=== PATIENT | male | born 1975 | race Caucasian/White ===

== ENCOUNTER → 2020-12-10 09:57 | Outpatient (BNVA) | payer OTHER, SELFPAY | PROVIDERS: PCP Internal Medicine; Visit Provider Surgery | DX: K64.2 Third degree hemorrhoids (principal) | CPT/HCPCS: 46600; 99212 ==

== ENCOUNTER 2020-12-28 06:37 | Day surgery (SDC) | payer OTHER, SELFPAY ==
[2020-12-24 11:23] VITALS: BMI 29.0
--- NOTE | 2020-12-26 13:01 | HO.ANESPROP2 ---
Documented by User: Nathalia Lundy 12/26/20 13:02 HPI - Anesthesia Eval Consult details Narrative: 45yo M for Hemorrhoidectomy, [facility] Active Problems Active Problems: All Active Problems (Updated 12/24/20 @ 11:19 by Elaine Dumont) Hemorrhoids that prolapse with straining and require manual replacement back inside anal canal (Acute) Anxiety and depression (Acute) Past Medical History Medical History Anxiety and depression Hemorrhoids that prolapse with straining and require manual replacement back inside anal canal Low back pain Surgical History Surgical History History of hemorrhoidectomy (~2007) History of laminectomy (~2013) History of removal of retained hardware History of right elbow replacement Hx of colonoscopy Social History Social History Alcohol intake: never Smoking Status: Never smoker Use of substances other than those prescribed or required for medical reasons: No Advance Directives: No Advance Directives Information Provided: No Advance Directives on File: No Meds Allergies Allergy/AdvReac Type Severity Reaction Status Date / Time No Known Allergies Allergy Verified 12/24/20 11:20 Home Medications Medication Instructions Recorded Confirmed Last Taken Type quetiapine 1 tab PO BEDTIME 12/24/20 12/24/20 Unknown History sulindac 200 mg PO BID PRN 12/24/20 12/24/20 Unknown History Exam Exam Date and Time: December 26, 2020 1301 Height,Weight and Vital Signs: Height 5 ft 11 in Weight 94.347 kg Assessment and Plan Assessment Anesthesia Assessment: Chart Reviewed Documented by User: Sylvia Carlin 12/28/20 08:50 [facility] Past Medical History Medical History Anxiety and depression Hemorrhoids that prolapse with straining and require manual replacement back inside anal canal Low back pain Surgical History Surgical History History of hemorrhoidectomy (~2007) History of laminectomy (~2013) History of removal of retained hardware History of right elbow replacement Hx of colonoscopy Social History Social History Alcohol intake: never Smoking Status: Never smoker Use of substances other than those prescribed or required for medical reasons: No Advance Directives: No Advance Directives Information Provided: No Advance Directives on File: No Meds Allergies Allergy/AdvReac Type Severity Reaction Status Date / Time No Known Allergies Allergy Verified 12/24/20 11:20 Home Medications Medication Instructions Recorded Confirmed Last Taken Type quetiapine 1 tab PO BEDTIME 12/24/20 12/24/20 Unknown History sulindac 200 mg PO BID PRN 12/24/20 12/24/20 Unknown History Exam Airway Mallampati Class: II TM Dist: >3cm Neck ROM: Full Heart: RRR Lungs: CTA
[2020-12-28 06:55] VITALS: BP 119/86; PULSE 70; RESP 18; TEMP 36.6; O2SAT 98
[2020-12-28] MEDS: Lactated Ringers 1,000 ML 100 ML IVCONT (07:11)
--- NOTE | 2020-12-28 09:09 | MHC.SHP ---
Pre-Procedural Eval Section B Chief Complaint: Third degree hemorrhoids Allergies: Allergies Allergy/AdvReac Type Severity Reaction Status Date / Time No Known Allergies Allergy Verified 12/24/20 11:20 Plan I have reviewed the history and physical and performed a pertinent physical examination on my patient. No changes have occurred unless specified.
--- NOTE | 2020-12-28 10:09 | P.OP_ITS ---
Operative Note Operative Note Date of Service: 12/28/20 Narrative: 45-year-old male was initially seen in the office because pain, and prolapse with hemorrhoids. He wanted to proceed with hemorrhoidectomy. He understood technique of the procedure. He was aware of the risks, benefits, and alternatives. He was brought to the operating room and placed in prone harlan-knife position under general anesthesia via endotracheal tube. The buttocks were retracted with wide tape laterally. The perianal was prepped and draped in the usual sterile fashion. A surgical time-out was done. The patient received Cefotan 2 g IV preoperatively. Examination of the anal orifice revealed an external hemorrhoid column on the left as well as on the right. I inserted the Codie Méndez retractor and examined the anal canal circumferentially. There was note of this mixed external and and internal hemorrhoid column on the left as well as the right side which appeared to be moderate-sized. There were no other lesions. There was no fissure or any induration. I applied a Arias grasper at the hemorrhoidal column on the left. I made a mghvmq-nz-rejak stitch at the pedicle using chromic 3-0 proximal to the dentate line. I made I incision around this hemorrhoid column to the perianal skin u sing blade 15. I excised the hemorrhoid column along this incision above the plane of the sphincters all the way to the pedicle. I closed this incision with a running chromic 3-0 stitch. Additional pobbuy-di-ayomx hemostatic chromic 3-0 sutures were placed We then proceeded to excise the hemorrhoidal column on the right side. Again a Arias grasper was used to retract this. I have made a izvafo-qf-dkrwc stitch on the pedicle using a chronic 3-0 and made I am incision around the hemorrhoidal column to the perianal skin. I excised this hemorrhoidal column above the plane of sphincters using scissors. I closed this incision with a running chromic 3-0 stitch with additional eyxzvw-dz-djzhn hemostatic sutures being placed as well. Once hemostasis was ensured, I proceeded to then infiltrate the perianal area with Marcaine 0.5% for postop analgesia. The procedure was then completed. The patient tolerated well. No immediate complication noted. Initial and final counts of sponges and instruments were correct. Estimated blood loss about 5 cc The patient was extubated without difficulty and transferred to recovery room with stable vital signs.
--- NOTE | 2020-12-28 10:14 | PM.OP ---
Brief Operative Note Date of Service: 12/28/20 Pre-op diagnosis: Internal and external hemorrhoids Post-op diagnosis: same Procedure: Exam under anesthesia, hemorrhoidectomy Surgeon: Ronnie Nixon MD Anesthesia: GETA Estimated blood loss (mL): 5 Pathology: other (Hemorrhoids) Condition: stable Disposition: PACU
[2020-12-28 10:20] VITALS: BP 126/84; PULSE 84; RESP 20; TEMP 36.3; O2SAT 98
[2020-12-28 10:25] VITALS: BP 114/81; PULSE 73; RESP 20; O2SAT 98
[2020-12-28 10:30] VITALS: BP 120/87; PULSE 85; RESP 20; O2SAT 97
[2020-12-28 10:35] VITALS: BP 114/79; PULSE 87; RESP 20; O2SAT 96
[2020-12-28 10:50] VITALS: BP 119/76; PULSE 85; RESP 20; O2SAT 95
== END 2020-12-28 11:58 ==
LOC: HO.SSS 06:38
PROVIDERS: PCP Internal Medicine; Visit Provider Surgery
PROC: (CPT 46260; principal; 2020-12-28 09:20)
DX: K64.2 Third degree hemorrhoids (principal); M96.1 Postlaminectomy syndrome, not elsewhere classified; F41.8 Other specified anxiety disorders; Z79.899 Other long term (current) drug therapy; Z79.1 Long term (current) use of non-steroidal anti-inflammatories (NSAID)
CPT/HCPCS: 46260; 88304; J0330; J1100; J1885; J2250; J2405; J3010

== ENCOUNTER → 2021-01-10 09:45 | Outpatient (BNVA) | payer OTHER, SELFPAY | PROVIDERS: PCP Internal Medicine; Visit Provider Surgery | DX: Z48.815 Encounter for surgical aftercare following surgery on the digestive system (principal); Z87.19 Personal history of other diseases of the digestive system | CPT/HCPCS: 99212 ==

== ENCOUNTER 2021-07-24 17:43 | Outpatient (REF) | payer OTHER, SELFPAY | END 2021-07-24 17:44 | disposition home or self-care (01) | LOC: HO.LNP 17:43 | PROVIDERS: Visit Provider Internal Medicine | DX: N30.01 Acute cystitis with hematuria (principal) | CPT/HCPCS: 87086 ==

== ENCOUNTER 2022-12-11 10:27 | Outpatient (REF) | payer OTHER, SELFPAY ==
--- NOTE | ~2022-12-11 | XR_ITS ---
EXAMINATION: XR SHOULDER, LEFT CLINICAL INFORMATION: Pain COMPARISON: None TECHNIQUE: Three views of the left shoulder. FINDINGS: Bone alignment is normal. No acute fracture or dislocation. Question old Hill-Sachs deformity. Joint spaces are normal. Soft tissues are otherwise normal. XR/XR shoulder LT min 2V IMPRESSION: Question old Hill-Sachs deformity.
== END 2022-12-11 10:28 | disposition home or self-care (01) ==
LOC: HO.HOSX 10:27
PROVIDERS: PCP Internal Medicine; Visit Provider Physician Assistant
DX: M75.82 Other shoulder lesions, left shoulder (principal)
CPT/HCPCS: 20610; 73030; 99202; J1040

== ENCOUNTER 2023-07-03 09:59 | Outpatient (AMB) | payer OTHER, SELFPAY ==
--- NOTE | 2023-07-03 10:02 | A.OFFVIS_ITS ---
Intake Vital Signs 07/03/23 10:10 Height 5 ft 11 in Weight 213 lb BMI 29.7 Intake Visit Reasons: ov- Left shoulder pain Intake Note: Sofiya 47 year old male who presents today for a follow up of left shoulder, last injection 12/11/22. Patient reports last injection provided no relief. He states while he was in [place] no pain but once he returned his pain returned. He was seen at [facility] ED who suggested he see an orthopedic. Currently he has constant pain and with certain movements. No relief with Tylenol, Motrin or Naproxen 500 mg. No other tx. Denies numbness or tingling. Allergies No Known Allergies Allergy (Verified 07/03/23 10:07) HPI ov- Left shoulder pain HPI Details 47-year-old male who returns to the office today for a follow-up of left shoulder pain. He states he had no pain when he was in [place] but the pain came back as he returned home. He currently reports he has constant pain in his shoulder which is aggravated with sleeping and certain movements. He denies any numbness or tingling and has not had any treatment in the past. He had his last injection on 12/11/22 which provided him no relief. He was also seen at [facility] ED where he was referred to our office. He finds no relief with Tylenol, Motrin or naproxen 500 mg. [facility] Medical History Anxiety and depression Hemorrhoids that prolapse with straining and require manual replacement back inside anal canal Low back pain Surgical History History of hemorrhoidectomy (~2007) History of laminectomy (~2013) History of removal of retained hardware History of right elbow replacement Hx of colonoscopy Social History Alcohol intake: never Patient Tobacco Use Status: Former Tobacco user Current occupational status: disabled Current occupation: right handed Review of Systems Const All systems reviewed & are unremarkable except as noted in HPI and below Physical Exam Vital Signs: BMI result Body Mass Index 29.7 Const General: cooperative, healthy appearing, comfortable, no acute distress, well developed and alert Orientation/consciousness: patient oriented x3 HEENT Head: Yes normal to inspection, Yes normocephalic and Yes atraumatic Eyes General: appearance normal, both eyes and all related structures Neck Neck: Yes normal visual inspection and Yes no lymphadenopathy Resp Effort & Inspection: normal respiratory effort and able to speak in complete sentences Cardio Rate: regular rate Peripheral pulses: Peripheral pulses 2+ throughout GI Inspection: Yes normal to inspection Palpation (GI): Soft to palpation Skin General skin exam: no rashes or lesions noted Neuro General: patient oriented x3 Extrem Other: Left shoulder normal to inspection. Tenderness over the bicipital groove and along the deltoid region of the shoulder. Forward flexion to 175, external rotation to 90, internal rotation to S1. 5/5 RTC strength. Positive [place] and O?Kwame?s. NVI. Psych Appearance: grossly normal Mental Status: mental status grossly normal Assessment & Plan Assessment & Plan (1) Tendonitis of left rotator cuff: Code(s): M75.82 - Other shoulder lesions, left shoulder Plan We discussed options which include repeat injection and an MRI. He is going to hold off on the injection today and an MRI of the left shoulder was ordered to further evaluate the integrity of RTC and surrounding structures. I encouraged him to work on his home exercises program and he will see me back once the scan is complete. Orders: Orders MR shoulder RT wo con Today M75.82 - Other shoulder lesions, left shoulder Patient Instructions: Scribed for Kentrell Rodriguez PA-C, by Edwin Owen medical records specialist, on 07/03/2023 at 9:45 AM SIN. Kentrell Mcdonald PA-C, have personally reviewed and agree with the information entered by the scribe. Coding Level of Care Code Est Pt Level 3 (42858) Diagnoses Tendonitis of left rotator cuff M75.82
[2023-07-03 10:10] VITALS: BMI 29.7
== END 2023-07-03 10:19 | disposition home or self-care (01) ==
PROVIDERS: PCP Internal Medicine; Visit Provider Physician Assistant
DX: M75.82 Other shoulder lesions, left shoulder (principal)
CPT/HCPCS: 99214

== ENCOUNTER → 2023-07-03 09:59 | Outpatient (BNVA) | payer OTHER, SELFPAY | PROVIDERS: PCP Internal Medicine; Visit Provider Physician Assistant ==

== ENCOUNTER 2023-08-05 18:04 | Outpatient (REF) | payer OTHER, SELFPAY ==
--- NOTE | ~2023-08-05 | MR_ITS ---
EXAMINATION: MR SHOULDER WITHOUT CONTRAST, LEFT CLINICAL INFORMATION: Left shoulder pain and limited range of motion. COMPARISON: Left shoulder radiographs dated 12/11/2022. TECHNIQUE: Multisequence MR imaging of the left shoulder was obtained without contrast on a high-field strength scanner. FINDINGS: ROTATOR CUFF: Mild supraspinatus tendinosis with insertional intrasubstance partial tearing measuring approximately 1.4 x 0.5 cm (AP x ML). No extension to the articular or bursal surfaces. Mild subscapularis tendinosis with distal articular surface fraying/partial tearing. No full-thickness rotator cuff tendon tear. No significant rotator cuff muscle atrophy. BICEPS: Absence of the proximal long head biceps tendon, consistent with a complete tear and tendon retraction. Small amount of the proximal biceps tissue remains attached to the anterosuperior labrum measuring up to 1.0 cm. CORACOACROMIAL ARCH: The undersurface of the acromion is minimally curved with lateral downsloping and small subacromial spurs. Mild acromioclavicular osteoarthritis. Trace edema within the subacromial subdeltoid bursa, consistent with minimal bursitis. LABRUM/CAPSULE: Irregularity/fraying through the periphery of the superior labrum adjacent to the biceps tendon attachment. No displaced undersurface tear. Intact joint capsule. GLENOHUMERAL JOINT/MARROW: Intact articular cartilage. No acute osseous injury. Small glenohumeral joint effusion. MR/MR shoulder LT wo con IMPRESSION: Mild supraspinatus tendinosis with insertional intrasubstance partial tearing measuring 1.4 x 0.5 cm (AP x ML). Mild subscapularis tendinosis with distal articular surface fraying/partial tearing. No full-thickness rotator cuff tendon tear. Complete tear and retraction of the proximal long head biceps tendon with a small amount of biceps tendon tissue remaining attached to the anterosuperior labrum. Mild acromioclavicular osteoarthritis with lateral downsloping and small subacromial spurs. Minimal subacromial subdeltoid bursitis. Irregularity/fraying through the periphery of the superior labrum adjacent to the biceps tendon attachment. No displaced undersurface labral tear. Small glenohumeral joint effusion.
== END 2023-08-05 18:05 | disposition home or self-care (01) ==
LOC: HO.MRI 18:04
PROVIDERS: PCP Internal Medicine; Visit Provider Physician Assistant
DX: S46.002D Unspecified injury of muscle(s) and tendon(s) of the rotator cuff of left shoulder, subsequent encounter (principal); M75.82 Other shoulder lesions, left shoulder
CPT/HCPCS: 73221

== ENCOUNTER 2023-08-14 10:16 | Outpatient (AMB) | payer OTHER, SELFPAY ==
[2023-08-14 10:17] VITALS: BMI 29.7
--- NOTE | 2023-08-14 10:17 | A.OFFVIS_ITS ---
Intake Vital Signs 08/14/23 10:17 Height 5 ft 11 in Weight 213 lb BMI 29.7 Intake Visit Reasons: OV, MRI Review Intake Note: Sofiya 47 year old male who presents today for a MRI review of left shoulder. Patient reports sharp pain with certain arm movements. Allergies No Known Allergies Allergy (Verified 08/14/23 10:18) HPI OV, MRI Review HPI Details 47-year-old male who returns to the [facility] today for an MRI review of left shoulder. he continues to have sharp pain in his shoulder with certain arm movements. [facility] Medical History Anxiety and depression Hemorrhoids that prolapse with straining and require manual replacement back inside anal canal Low back pain Surgical History Hx of colonoscopy History of removal of retained hardware History of right elbow replacement History of hemorrhoidectomy (~2007) History of laminectomy (~2013) Social History Alcohol intake: never Patient Tobacco Use Status: Former Tobacco user Current occupational status: disabled Current occupation: right handed Review of Systems Const All systems reviewed & are unremarkable except as noted in HPI and below Physical Exam Vital Signs: BMI result Body Mass Index 29.7 Const General: cooperative, healthy appearing, comfortable, no acute distress, well developed and alert Orientation/consciousness: patient oriented x3 HEENT Head: Yes normal to inspection, Yes normocephalic and Yes atraumatic Eyes General: appearance normal, both eyes and all related structures Neck Neck: Yes normal visual inspection and Yes no lymphadenopathy Resp Effort & Inspection: normal respiratory effort and able to speak in complete sentences Cardio Rate: regular rate Peripheral pulses: Peripheral pulses 2+ throughout GI Inspection: Yes normal to inspection Palpation (GI): Soft to palpation Skin General skin exam: no rashes or lesions noted Neuro General: patient oriented x3 Extrem Other: Left shoulder normal to inspection. Tenderness over the bicipital groove and along the deltoid region of the shoulder. Forward flexion to 175, external rotation to 90, internal rotation to S1. 5/5 RTC strength. Positive Gil[place] and O?Kwame?s. NVI. Psych Appearance: grossly normal Mental Status: mental status grossly normal Results Reviewed Results Reviewed: MR shoulder LT wo con IMPRESSION: Mild supraspinatus tendinosis with insertional intrasubstance partial tearing measuring 1.4 x 0.5 cm (AP x ML). Mild subscapularis tendinosis with distal articular surface fraying/partial tearing. No full-thickness rotator cuff tendon tear. Complete tear and retraction of the proximal long head biceps tendon with a small amount of biceps tendon tissue remaining attached to the anterosuperior labrum. Mild acromioclavicular osteoarthritis with lateral downsloping and small subacromial spurs. Minimal subacromial subdeltoid bursitis. Irregularity/fraying through the periphery of the superior labrum adjacent to the biceps tendon attachment. No displaced undersurface labral tear. Small glenohumeral joint effusion. Assessment & Plan Assessment & Plan (1) Tendonitis of left rotator cuff: Code(s): M75.82 - Other shoulder lesions, left shoulder Plan He is going to continue activity as tolerated maintaining his ROM and strength. He will contact the office if he develops any type symptoms or limitations in activities, otherwise follow-up as needed. Patient Instructions: Scribed for Kentrell Rodriguez PA-C, by Edwin Owen medical chief technician, on 08/14/2023 at 10:45 AM SIN. Kentrell Mcdonald PA-C, have personally reviewed and agree with the information entered by the scribe. Coding Level of Care Code Est Pt Level 3 (24984) Diagnoses Tendonitis of left rotator cuff M75.82
== END 2023-08-14 12:45 | disposition home or self-care (01) ==
PROVIDERS: PCP Internal Medicine; Visit Provider Physician Assistant
DX: M75.82 Other shoulder lesions, left shoulder (principal); S46.111A Strain of muscle, fascia and tendon of long head of biceps, right arm, initial encounter
CPT/HCPCS: 99213

== ENCOUNTER → 2023-08-14 10:16 | Outpatient (BNVA) | payer OTHER, SELFPAY | PROVIDERS: PCP Internal Medicine; Visit Provider Physician Assistant | DX: M75.82 Other shoulder lesions, left shoulder (principal) | CPT/HCPCS: 99212 ==

== ENCOUNTER 2025-04-17 07:49 | Day surgery (SDC) | payer OTHER, SELFPAY ==
--- OUTSIDE RECORDS SUMMARY | 2025-03-21 10:41 | XMS_ITS | Clinical Summary ---
Author Organization [facility] Address [address] [place] [address] Care Team Providers Care General Warehouse Worker Name Role Phone Unavailable Primary Care Provider Unavailabl e Source Comments PLEASE NOTE, if this patient is a minor, it may be UNLAWFUL to discuss sensitive information that is contained in these records (such as FAMILY PLANNING, MENTAL HEALTH or SUBSTANCE ABUSE) with the minor patient's parent or other person without the patient's specific authorization.[facility] Medications No known medications Active Problems No known active problems Social History Tobacco Use Types Packs/Day Years Used Date Smoking Tobacco: Former Cigarettes Smokeless Tobacco: Never Tobacco Cessation:Counseling Given: Not Answered Social Connections Answer Date Recorded Connectedness 0 07/22/2024 Financial Resource Strain Answer Date R ecorded Financial Resource Strain 0 2021 Stress Answer Date Recorded Stress 0 05/23/2022 Physical Activity Answer Date Recorded Physical Activity 0 05/23/2022 Food Insecurity Answer Date Recorded Food 0 07/28/2024 Transportation Needs Answer Date Record ed Transportation 0 05/23/2022 Housing Stability Answer Date Recorded Housing 0 05/23/2022 Safety and Environment Answer Date Milad rded Safety 0 05/23/2022 Utilities Answer Date Recorded Utilities 0 05/23/2022 Employment Answer Date Recorded Stress 0 07/22/2024 Sex and Gender Information Value Date Recorded Sex Assigned at Male 05/23/2022 6:47 AM PDT Legal Sex Male 9:16 AM PST Gender Identity Male 05/23/2022 6:47 AM PDT Sexual Orientation Straight 05/23/2022 6: 47 AM PDT Last Filed Vital Signs Vital Sign Reading Time Taken Comments Blood Pressure 149/86 05/23/2022 9:11 AM EDT Pulse 95 05/23/2022 9:11 AM EDT Temperature - - Respiratory Rate - - Oxygen Saturation - - Inhaled Oxygen Concentration - - Weight - - Height - - Body Mass Index - - Plan of Treatment Health Maintenance Due Date Last Done Comments Anxiety Screening 1974 Dental FMX/Pano 1974 Diabetes Screening 1974 Hepatitis C Screening 1974 Lipid Screening 1974 Tobacco Screening 1974 HIV Screening 1989 Imm-DTaP/Tdap/Td (1 - Tdap) 1993 Imm-Hepatitis B (1 of 3 - 19+ 3-dose series) 3 CT Colonography 2019 Colonoscopy 2019 Colorectal Cancer Screening 2019 FIT/gFOBT 2019 Fecal DNA 2019 Flexible Sigmoidoscopy 2019 Hypertension Screening (#1) 05/23/2023 Dental BW 05/25/2023 05/23/2022 Dental Examination 05/25/2023 05/23/2022 Dental Perio Charting 05/25/2023 05/23/2022 Dental Prophy 05/25/2023 05/23/2022 [id number] ( season) 2024 Imm-Influenza (#1) 2024 Imm-Zoster, Recombinant (1 of 2) 2024 Alcohol and Drug Screen 11/02/2024 Depression Annual Screen 11/02/2024 Procedures Procedure Name Priority Date/Time Associated Diagnosis Comments COMP PERIODONTAL EVALUATION - NEW/EST PATIENT Routine 05/23/2022 9:00 AM EDT Encounter for dental examination BITEWINGS - FOUR RADIOGRAPHIC IMAGES Routine 05/23/2022 9:00 AM EDT Encounter for dental examination Full PROPHYLAXIS - ADULT Routine 022 9:00 AM EDT Encounter for dental examination PERIODIC ORAL EVALUATION ESTABLISHED PATIENT Routine 05/23/2022 9:00 AM EDT Encounter for dental examination from Last 3 Months or Most Recently Relevant to Health Maintenance Insurance [facility] [id number]
--- OUTSIDE RECORDS SUMMARY | 2025-03-21 10:41 | XMS_ITS ---
Author Organization [facility] Address [address] [place] [address] Care Team Providers Care Chemical Cell Changer Name Role Phone Caitlin Kathleen Primary Care Provider Unavailab Jose Barry Unavailable [phone] REASON FOR VISIT bowel prep Medications Medication SIG (Take, Route, Frequency, Duration) Notes Start Date End Date Status Dulcolax (colon prep) 5 MG take at 3:00 p.m and 7:00p.m. Orally two tablets twice a day for one day for 1 days 02/26/2025 Active MiraLax (colon prep) 17 GM/SCOOP 1 238Gm bottle mixed with Gatorade or Crystal Light orally begin at 5:00 p.m. the day before the procedure for 1 days 02/26/2025 Active Encounters Encounter Location Date Provider Diagnosis [facility] [address] [place] [id number] 01/17/2025 Jose Tejada Plan Of Treatment Medication Medication Name Sig Start Date Stop Date Notes Dulcolax (colon prep) 5 MG take at 3:00 p.m and 7:00p.m. Orally two tablets twice a day for one day for 1 days 02/26/2025 MiraLax (colon prep) 17 GM/SCOOP 1 238Gm bottle mixed with Gatorade or Crystal Light orally begin at 5:00 p.m. the day before the procedure for 1 days 02/26/2025 Next Appt Details Provider Name:Jose Tejada , 04/17/2025 09:30:00 AM, [address] [place] [address] , [place], [place], [phone], Progress Notes * BRYN OGLESBY EDOB: [birth year] (49 yo M)Acc No.[id number]:01/17/2025 Patient:?BRYN OGLESBY :1975???Age:49 Y???Sex:Male Address:[address] [place] [address] * Refills? Start MiraLax (colon prep) Powder, 17 GM/SCOOP, orally, 1, 1 238Gm bottle mixed with Gatorade or Crystal Light, begin at 5:00 p.m. the day before the procedure, 1 days, Refills=0 Start Dulcolax (colon prep) Tablet Delayed Release, 5 MG, Orally, 4, take at 3:00 p.m and 7:00p.m., two tablets twice a day for one day, 1 days, Refills=0 * true * Date:? Generated for Carol calhoun/Gissell/Douglasitting on:?03/21/2025 10:41 AM EDT
--- OUTSIDE RECORDS SUMMARY | 2025-03-21 10:41 | XMS_ITS ---
Author Organization [facility] Address [address] [place] [address] Care Team Providers Care Coal Drier Operator Name Role Phone Caitlin Kathleen Primary Care Provider Unavailab Jose Barry [phone] Allergies No Known Allergies REASON FOR VISIT Patient presents today for a colon screening Medications Medication SIG (Take, Route, Frequency, Duration) Notes Start Date End Date Status Multivitamin - 1 tablet Orally Once a day Not-Taking Sulindac 200 MG 1 tablet with food Orally Twice a day Active QUEtiapine Fumarate 200 MG 1 tablet Orally Once a day Active Atorvastatin Calcium 20 MG 1 tablet Orally Once a day Active Social History Tobacco Use: Social History Observation Description Date Details (start date - stop date) Never Smoker NA - NA Tobacco Control (Standard) Question Answer Notes Tobacco use: Nonsmoker AUDIT-C (Standard) Question Answer Notes Did you have a drink containing alcohol in the p ast year? No Points 0 Interpretation Negative Section Notes: Single Nonsmoker; no alcohol Vital Signs Blood pressure systolic 111 mm Hg 01/18/20 25 Blood pressure diastolic 11 mm Hg 025 Height 71 in 01/17/2025 Weight 224 lbs 01/17/2025 BMI 31.24 kg/m2 01/17/2025 Procedures Procedure Date Ordered Date Performed Result Body Sit e COLONOSCOPY 01/17/2025 N/A Encounters Encounter Location Date Provider [facility] [address] [place] [id number] 01/17/2025 Jose Tejada Colon cancer screening Z12.11 and Rectal bleeding K62.5 Assessments Encounter Date Diagnosis (ICD Code) Assessment Notes Treatment Notes Treatment Clinical Notes Section Notes 01/17/2025 Colon cancer screening (ICD-10 - Z12.11) Do not take the Sulindac for a week before the colonoscopy .Overall, Bryn appears quite well. I did recommend a colonoscopy for screening purposes given his age and excellent clinical appearance. We did review the rationale for this in regard to colon cancer prevention. Full consent has been obtained for this, including risks of bleeding and perforation. The procedure will be done with monitored anesthesia care. He was advised not to use any Sulindac for 1 week before the procedure. We did review his occasional hematochezia and this certainly seems consistent with a perianal source such as a hemorrhoid. I do not think this sounds particularly worrisome but obviously that will be assessed at the time of his colonoscopy. Bryn was comfortable with this plan. Thank you again for allowing me to participate in Bryn's care. I shall continue to keep you advised of his progress. 01/17/2025 Rectal bleeding (ICD-10 - K62.5) .Overall, Bryn appears quite well. I did recommend a colonoscopy for screening purposes given his age and excellent clinical appearance. We did review the rationale for this in regard to colon cancer prevention. Full consent has been obtained for this, including risks of bleeding and perforation. The procedure will be done with monitored anesthesia care. He was advised not to use any Sulindac for 1 week before the procedure. We did review his occasional hematochezia and this certainly seems consistent with a perianal source such as a hemorrhoid. I do not think this sounds particularly worrisome but obviously that will be assessed at the time of his colonoscopy. Bryn was comfortable with this plan. Thank you again for allowing me to participate in Bryn's care. I shall continue to keep you advised of his progress. Plan Of Treatment Treatment Notes Assessment Notes Colon cancer screening Do not take the S ulindac for a week before the colonoscopy Pending Test Test Name Order Date COLONOSCOPY 01/17/2025 Next Appt Details Follow Up: prn, Reason: Provider Name:Jose Jordan Tejada , 04/17/2025 09:30:00 AM, [address] [place] [address] , [place], [place], [phone], Progress Notes * RBYN OGLESBY EDOB: [birth year] (49 yo M)Acc No.[id number]:01/17/2025 Progress Notes Patient:?BRYN OGLESBY Provider:?Jose Tejada MD :1975???Age:49 Y???Sex:Male Myles e:01/17/2025 Address:[address] [place], [place] [id number] Pcp:Caitlin Kathleen Subjective: * Chief Complaints: * ???Patient presents today fo r a colon screening * HPI: ???incontinence:? I saw Bryn in the office today for evaluation of need for colorectal cancer screening, as well as occasional hematochezia. As you know, Bryn is a generally healthy 49-year-old male who presently feels well. He enjoys a good appetite and denies any significant heartburn or dysphagia. His bowel movements have been regular. He does describe rare episodes of hematochezia with bright red blood in association with a bowel movement. He has had previous hemorrhoid surgery. He denies any significant constipation, straining, nor rectal pain. He denies any melena. He denies abdominal pain, jaundice, nor unintentional weight loss. He denies any known family history of colorectal cancer. He has never had a colonoscopy. * ROS:?General/Constitutional:?Change in appetite?denies.?Chills?denies.?Fatigue?denies.?Ophthalmologic:?Comments?all negative.?ENT:?Comments?all negative.?Respiratory:?hemoptysis?denies.?Cough?denies.?Cardiovascular:?Chest pain?denies.?Orthopnea?denies.?Gastrointestinal:?Comments?See HPI for details.?Genitourinary:?Hematuria?denies.?Dysuria?denies.?Musculoskeletal:?Painful joints?denies.?Weakness?denies.?Skin:?Itching?denies.?Rash?denies.?Neurologic:?Headache?denies.?Seizures?denies.?Psychiatric:?Comments?all negative.? * Medical History:? * Surgical History:?Hemorrhoid s In [address] Nixon Carpal tunnel Bilaterally Bunionectomy Back surgery Left elbow * Hospitalization/Major Diagno stic Procedure:?No Hospitalization History. * Family History:? No colon cancer. * Social History:?Tobacco Use:?Tobacco Control (Standard)?Tobacco use:?Nonsmoker.?Miscellaneous:?Marital status: single. ???Drug/Alcohol:?AUDIT-C (Standard)?Did you have a drink containing alcohol in the past year??No,?Points?0,?Interpretation?Negative.?Single Nonsmoker; no alcohol. * Medications:?TakingAtorvasta tin Calcium 20 MG Tablet 1 tablet Orally Once a day QUEtiapine Fumarate 200 MG Tablet 1 tablet Orally Once a day Sulindac 200 MG Tablet 1 tablet with food Orally Twice a day Taking Atorvastatin Calcium 20 MG Tablet 1 tablet Orally Once a day Taking QUEtiapine Fumarate 200 MG Tablet 1 tablet Orally Once a day Taking Sulindac 200 MG Tablet 1 tablet with food Orally Twice a day Not-Taking/PRNMultivitamin - Tablet 1 tablet Orally Once a day Medication List reviewed and reconciled with the patientNot-Taking/PRN Multivitamin - Tablet 1 tablet Orally Once a day Medication List reviewed and reconciled with the patient * Allergies:?N.K.D.A.yes[Aller gies Verified] Objective: * Vitals:?Wt:224lbs, Ht: 71 in , BMI:31.24Index, BP:111/11mm Hg, Ht-cm: 180.34, Wt- k.61. * Examination: ???General Examination: ?GENERAL APPEARANCE:?pleasant, well nourished, well developed, in no acute distress.?EYES:?sclera non-icteric.?ORAL CAVITY:?mucosa moist.?NECK/THYROID:?no cervical lymphadenopathy, neck supple.?SKIN:?nonjaundiced, no spider angiomata.?HEART:?S1, S2 normal.?LUNGS:?clear to auscultation bilaterally.?ABDOMEN:?normal bowel sounds, no guarding or rigidity, no guarding or rigidity, no masses palpable, soft, nontender, nondistended.?EXTREMITIES:?no edema.?NEUROLOGIC:?alert and oriented.? Assessment: * Assessment: 1.?Rectal bleeding - K62.5 ( Primary)???2.?Colon cancer screening - Z12.11??? .Overall, Bryn appears ketty te well. I did recommend a colonoscopy for screening purposes given his age and excellent clinical appearance. We did review the rationale for this in regard to colon cancer prevention. Full consent has been obtained for this, including risks of bleeding and perforation. The procedure will be done with monitored anesthesia care. He was advised not to use any Sulindac for 1 week before the procedure. We did review his occasional hematochezia and this certainly seems consistent with a perianal source such as a hemorrhoid. I do not think this sounds particularly worrisome but obviously that will be assessed at the time of his colonoscopy. Bryn was comfortable with this plan. Thank you again for allowing me to participate in Bryn's care. I shall continue to keep you advised of his progress. Plan: * Treatment: Notes: Do not take the Sulindac for a week before the colonoscopy?? * Procedure Codes:?70730 DIAGN OSTIC [id number] COLORECTAL CA SCREEN DOC [id number] TOBACCO [id number] BP SCR NOT PRFRM REC REASON [id number] RCMND FLW-UP 10 YRS DOCD * Follow Up:?prn * * Sign off status: Completed true * Provider:?Jose Tejada MD Date:? 025 Generated for Brinai unique/Gissell/eTransmitting on:?03/21/2025 10:40 AM EDT History and Physical Notes * Examination Category Sub-Category Detail Notes Category Not es General Examination GENERAL APPEARANCE: pleasant , well nourished, well developed, in no acute distress HEAD: EYES: sclera non-icteric EARS: NOSE: THROAT: NECK/THYROID: no cervical lymphade nopathy, neck supple HEART: S1, S2 normal CHEST: LUNGS: clear to auscultatio n bilaterally ABDOMEN: normal bowel sounds, no guarding or rigidity, no guarding or rigidity, no masses palpable, soft, nontender, nondistended NEUROLOGIC: alert and oriented SKIN: nonjaundiced, no spi mindy angiomata EXTREMITIES: no edema PERIPHERAL PULSES: BACK: BREASTS: MUSCULOSKELETAL: MALE GENITOURINARY: LYMPH NODES: RECTAL EXAM: FEMALE GENITOURINARY: ORAL CAVITY: mucosa moist
--- OUTSIDE RECORDS SUMMARY | 2025-03-21 10:41 | XMS_ITS | Clinical Summary ---
Author Organization [facility] Address [address] [place] [address] Phone Care Team Providers Care Choke Setter Name Role Phone Caitlin Kathleen MD Primary Care Provider [phone] Social History Tobacco Use Types Packs/Day Years Used Date Smoking Tobacco: Never Assessed Sex and Gender Information Value Date Recorded Sex Assigned at Not on file Legal Sex Male 6:33 PM EST Gender Identity Not on file Sexual Orientation Not on file Plan of Treatment Health Maintenance Due Date Last Done Comments DTaP,Tdap,and Td Vaccines (1 - Tdap) 1993 Hepatitis B Vaccines (1 of 3 - 19+ 3-dose series) 1993 Colorectal Cancer Screening: Colonoscopy 10/04/2022 Depression Screening 10/04/2022 HIV Screening 10/04/2022 Hepatitis C Screening 10/04/2022 Social Influencers of Health Screening 10/04/2022 COVID-19 Vaccine (3 - 2023- season) 2024 11/14/2021, 05/23/2021 Pneumococcal Vaccine: 50+ Years (1 of 1 - PCV) 2024 Zoster Vaccines (1 of 2) 2024 Cholesterol Screening (Lipid Panel) 11/21/2029 11/21/2024 Influenza Vaccine Completed 08/19/2024, , 08/15/2022, Additional history exists HIB Vaccines Aged Out No longer eligi ble based on patient's age to complete this topic HPV Vaccines Aged Out No longer eligi ble based on patient's age to complete this topic Hepatitis A Vaccines Aged Out No long er eligible based on patient's age to complete this topic IPV Vaccines Aged Out No longer eligi ble based on patient's age to complete this topic MMR Vaccines Aged Out No longer eligi ble based on patient's age to complete this topic Meningococcal ACWY Vaccine Aged Out N o longer eligible based on patient's age to complete this topic Meningococcal B Vaccine Aged Out No l onger eligible based on patient's age to complete this topic Pneumococcal Vaccine: Pediatrics (0 to 5 Years) and At-Risk Patients (6 to 64 Years) Aged Out No longer eligible based on patient's age to complete this topic RSV Immunization Patients Under 20 months Aged Out No longer eligible based on patient's age to complete this topic Varicella Vaccines Aged Out No longer eligible based on patient's age to complete this topic Procedures Procedure Name Priority Date/Time Associated Diagnosis Comments LIPID PANEL WITH REFLEX TO DIRECT LDL Routine 11/21/2024 8:17 AM EST Subclinical hypothyroidism Mixed hyperlipidemia Major depressive disorder, single episode in full remission (CMS/[facility] V24) Body mass index 32.0-32.9, adult Special screening for malignant neoplasm of prostate from Last 3 Months or Most Recently Relevant to Health Maintenance Results * (ABNORMAL) Lipid panel with reflex to direct LDL (11/21/2024 8:17 AM EST) Cholesterol 189 0 - 200 mg/dL LAB CHEMISTRY METHOD 11/21/2024 10:07 AM [facility] Triglycerides 194(H) 0 - 150 mg/dL LAB CHEMISTRY METHOD 11/21/2024 10:07 AM [facility] HDL 41 >=40 mg/dL LAB CHEMISTRY METHOD 11/21/2024 10:07 AM [facility] LDL Calculated 109(H) 0 - 100 mg/dL LAB CHEMISTRY METHOD 11/21/2024 10:07 AM [facility] VLDL Cholesterol Kieran 38.8 mg/dL LAB CHEMISTRY METHOD 11/21/2024 10:07 AM [facility] Non HDL Chol. (LDL+VLDL) 148(H) <145 mg/dL LAB CHEMISTRY METHOD 11/21/2024 10:07 AM [facility] Chol/HDL Ratio 4.6(H) 0.0 - 4.4 LAB CHEMISTRY METHOD 11/21/2024 10:07 AM EST [facility] Blood Venous blood specimen / Unknown Venipuncture / Unknown 11/21/2024 8:17 AM EST 11/21/2024 8:17 AM EST Caitlin Kathleen MD LAB BLOOD ORDERABLES Final Re sult [facility] [address] [place] [address], from Last 3 Months or Most Recently Relevant to Health Maintenance Insurance * Guarantor: [employer] Account Type Relation to Patient Date of Phone Billing Address Personal/Family Self 1975 [address] [place] [address] [facility] [employer] Care Teams Choke Setter Relationship Specialty Start Date End Date Caitlin Kathleen MD [address] [place] [address] [place] [address] PCP - General Internal Medicine 11/21/24
--- OUTSIDE RECORDS SUMMARY | 2025-03-21 10:41 | XMS_ITS | Encounter Summary ---
Author Organization [facility] Address [address] [place] [address] Care Team Providers Care Teacher Early Childhood Development Name Role Phone Unavailable Primary Care Provider Unavailabl e Encounter Details Date Type Department Care Team (Late st Contact Info) Description 05/23/2022 Dental Interim Note [facility] [address] [place] [phone] GillespieJeimy rodgers Y [address] [place], [place] [phone] Social History Tobacco Use Types Packs/Day Years Used Date Smoking Tobacco: Former Cigarettes Smokeless Tobacco: Never Social Connections Answer Date Recorded Social Connections and Isolation 0 05/23/2022 Financial Resource Strain Answer Date R ecorded Financial Resource Strain 0 2021 Stress Answer Date Recorded Stress 0 05/23/2022 Physical Activity Answer Date Recorded Physical Activity 0 05/23/2022 Food Insecurity Answer Date Recorded Food 0 05/23/2022 Transportation Needs Answer Date Record ed Transportation 0 05/23/2022 Housing Stability Answer Date Recorded Housing 0 05/23/2022 Safety and Environment Answer Date Milad rded Safety 0 05/23/2022 Utilities Answer Date Recorded Utilities 0 05/23/2022 Employment Answer Date Recorded Employment 0 05/23/2022 Sex and Gender Information Value Date Recorded Sex Assigned at Male 05/23/2022 6:47 AM PDT Legal Sex Male 9:16 AM PST Gender Identity Male 05/23/2022 6:47 AM PDT Sexual Orientation Straight 05/23/2022 6: 47 AM PDT documented as of this encounter Plan of Treatment Not on file documented as of this encounter Procedures Procedure Name Priority Date/Time Associated Diagnosis Comments 18 D COMPOSITE - WISDOM (NON BILLABLE) Routine 05/23/2022 12:00 AM EDT 29 O AMALGAM - WISDOM (NON BILLABLE) Routine 05/23/2022 12:00 AM EDT 19 DO AMALGAM - WISDOM (NON BILLABLE) Routine 05/23/2022 12:00 AM EDT 18 MO AMALGAM - WISDOM (NON BILLABLE) Routine 05/23/2022 12:00 AM EDT 14 MO AMALGAM - WISDOM (NON BILLABLE) Routine 05/23/2022 12:00 AM EDT 15 O AMALGAM - WISDOM (NON BILLABLE) Routine 05/23/2022 12:00 AM EDT 31 O AMALGAM - WISDOM (NON BILLABLE) Routine 05/23/2022 12:00 AM EDT 4 DO AMALGAM - WISDOM (NON BILLABLE) Routine 05/23/2022 12:00 AM EDT 2 O AMALGAM - WISDOM (NON BILLABLE) Routine 05/23/2022 12:00 AM EDT 28 O AMALGAM - WISDOM (NON BILLABLE) Routine 05/23/2022 12:00 AM EDT documented in this encounter Visit Diagnoses Not on filedocumented in this encounter
--- OUTSIDE RECORDS SUMMARY | 2025-03-21 10:41 | XMS_ITS ---
Author Organization [facility] Address [address] [place] [address] Care Team Providers Care Site Foreman Name Role Phone Loydalucrecia Caitlin Primary Care Provider Unavailab Jose Barry Unavailable [phone] REASON FOR VISIT Colon prep Rx's sent Medications Medication SIG (Take, Route, Frequency, Duration) [...] Active Encounters Encounter Location Date Provider Diagnosis [facility] [address] [place] [phone] 02/26/2025 Jose Tejada Plan Of Treatment Medication Medication [...] Provider Name:Jose Tejada , 04/17/2025 09:30:00 AM, [address] [place] [address] , [place], [place], [phone], Progress Notes * BRYN OGLESBY EDOB: [birth year] (49 yo M)Acc No.[id number]:02/26/2025 Patient:?BRYN OGLESBY :1975???Age:49 Y???Sex:Male Address:[address] [place] [address] * Refills? Start MiraLax (colon prep) Powder, [...] * true * Date:? Generated for Carol calhoun/Gissell/Nicksmitting on:?03/21/2025 10:40 AM EDT
--- OUTSIDE RECORDS SUMMARY | 2025-03-21 10:41 | XMS_ITS | Patient Health Record ---
Author Organization [facility] Address [address] [place] [address] Care Team Providers Care Golf Club Weigher Name Role Phone Caitlin Kathleen Primary Care Provider Unavailab Jose Barry Unavailable [phone] Allergies No Known Allergies Reason For Referral Referring Provider First Name MINE Referring Provider Last Name KATHRYN Referring Provider Speciality General Pr actice Referred Organization [facility] Referred Provider Jose Tejada Referred Address [address] [facility],[address],[place], [place],[address], Referred Provider Specialty Gastroentero logy General Notes no referral needed f or [employer] Referral Priority Routine Medications Medication SIG (Take, Route, Frequency, Duration) [...] the procedure for 1 days 02/26/2025 Active Multivitamin - 1 tablet Orally Once a day Not-Taking Dulcolax (colon prep) 5 MG take at 3:00 p.m and 7:00p.m. Orally two tablets twice a day for one day for 1 days 02/26/2025 Active Sulindac 200 MG 1 tablet with food Orally Twice a day Active QUEtiapine Fumarate 200 MG 1 tablet Orally Once a day Active Atorvastatin Calcium 20 MG 1 tablet Orally Once a day Active MiraLax (colon prep) 17 GM/SCOOP 1 238Gm bottle mixed with Gatorade or Crystal Light orally begin at 5:00 p.m. the day before the procedure for 1 days 02/26/2025 Active Social History Tobacco Use: Social History Observation Description Date Details (start date - stop date) Never Smoker NA - NA Tobacco Control (Standard) Question Answer Notes Tobacco use: Nonsmoker AUDIT-C (Standard) Question Answer Notes Did you have a drink containing alcohol in the p ast year? No Points 0 Interpretation Negative Section Notes: Single Nonsmoker; no alcohol Vital Signs Blood pressure diastolic 11 mm Hg 01/17/2025 Height 71 in 01/17/2025 Blood pressure systolic 111 mm Hg 01/17/2025 Weight 224 lbs 01/17/2025 BMI 31.24 kg/m2 01/17/2025 Procedures Procedure Date Ordered Date Performed Result Body Sit e COLONOSCOPY 01/17/2025 N/A Encounters Encounter Location Date Provider Diagnosis [facility] [address] [place] [phone] 01/17/2025 Jose Tejada Colon cancer screening Z12.11 and Rectal bleeding K62.5 [facility] [address] [place] [phone] 09/22/2024 Jose Tejada [facility] [address] [place] [phone] 01/17/2025 Jose Tejada [facility] [address] [place] [phone] 02/26/2025 Jose Tejada Assessments Encounter Date Diagnosis (ICD Code) Assessment [...] advised of his progress. Plan Of Treatment Pending Test Test Name Order Date COLONOSCOPY 01/17/2025 Next Appt Details Provider Name:Jose Jordan Tejada , 04/17/2025 09:30:00 AM, [address] [place] [address] , [place], [place], [phone], Insurance Providers Payer Name Payer Address Payer Phone Subscriber Number Group Number Insured Name Patient Relationship to Insured Coverage Start Date Coverage End Date [facility] [address] [address] [place], [place] [id number] MENDELBRYN Self - patient is the insured Medical (General) History Medical History History ICD Code Denies DC,DM,CVA,Lung disease,renal dise ase Depression Back pain Hyperlipidemia Surgical History Surgery Date(Month/Year) Left elbow Back surgery Bunionectomy Carpal tunnel Bilaterally Hemorrhoids [place] [address] Nixon
[2025-04-13 14:03] VITALS: BMI 31.2
--- NOTE | 2025-04-14 13:06 | P.CONAN_ITS ---
Documented by User: Nathalia Lundy NP 04/14/25 13:06 HPI - Anesthesia Eval Consult details Narrative: 49yo M for Colonoscopy [facility] Active Problems Active Problems: All Active Problems Tendonitis of left rotator cuff (Acute) Hemorrhoids that prolapse with straining and require manual replacement back inside anal canal (Acute) Anxiety and depression (Acute) Past Medical History Medical History (Updated 04/13/25 @ 13:58 by Libby Sharma, RN) Hyperlipidemia Low back pain Hemorrhoids that prolapse with straining and require manual replacement back inside anal canal Anxiety and depression Surgical History Surgical History (Updated 04/17/25 @ 08:13 by Jennifer Melendez RN) History of bunionectomy History of carpal tunnel release of both wrists History of removal of retained hardware History of right elbow replacement History of hemorrhoidectomy (~2007) History of laminectomy (~2013) Social History Social History Alcohol intake: never Patient Tobacco Use Status: Former Tobacco user Use of substances other than those prescribed or required for medical reasons: No Are you DNR?: No Advance Directives: No Advance Directives Information Provided: Yes Poor oral hygiene: No Current occupational status: disabled Current occupation: right handed Meds Allergies Allergy/AdvReac Type Severity Reaction Status Date / Time No Known Allergies Allergy Verified 08/14/23 10:18 Home Medications ?Medication ?Instructions ?Recorded ?Confirmed ?Last Taken ?Type quetiapine 200 mg tablet 1 tab PO BEDTIME 12/24/20 04/13/25 Unknown History sulindac 200 mg tablet 200 mg PO BID PRN Pain 12/24/20 04/13/25 Unknown History atorvastatin 20 mg tablet 20 mg PO DAILY 04/13/25 04/13/25 Unknown History Exam Height,Weight and Vital Signs: Height 5 ft 11 in Weight 101.605 kg Assessment and Plan Assessment Anesthesia Assessment: Chart Reviewed Documented by User: Saad Mast MD 04/17/25 09:20 [facility] Past Medical History Medical History (Updated 04/13/25 @ 13:58 by Libby Sharma RN) Hyperlipidemia Low back pain Hemorrhoids that prolapse with straining and require manual replacement back inside anal canal Anxiety and depression Family History Family history of problems with anesthesia: No Surgical History Surgical History (Updated 04/17/25 @ 08:13 by Jennifer Melendez RN) History of bunionectomy History of carpal tunnel release of both wrists History of removal of retained hardware History of right elbow replacement History of hemorrhoidectomy (~2007) History of laminectomy (~2013) History of Problems with Anesthesia: No Social History Social History Alcohol intake: never Patient Tobacco Use Status: Former Tobacco user Use of substances other than those prescribed or required for medical reasons: No Are you DNR?: No Advance Directives: No Advance Directives Information Provided: Yes Poor oral hygiene: No Current occupational status: disabled Current occupation: right handed Meds Allergies Allergy/AdvReac Type Severity Reaction Status Date / Time No Known Allergies Allergy Verified 08/14/23 10:18 Home Medications ?Medication ?Instructions ?Recorded ?Confirmed ?Last Taken ?Type quetiapine 200 mg tablet 1 tab PO BEDTIME 12/24/20 04/13/25 Unknown History sulindac 200 mg tablet 200 mg PO BID PRN Pain 12/24/20 04/13/25 Unknown History atorvastatin 20 mg tablet 20 mg PO DAILY 04/13/25 04/13/25 Unknown History Exam Airway Mallampati Class: II TM Dist: >3cm Neck ROM: Full Assessment and Plan Assessment Anesthesia Assessment: Anesthesia Plan Discussed Final Anesthetic Review Family History of Problems with Anesthesia: No History of Problems with Anesthesia: No NPO: Yes ASA Class: II Final Preanesthetic Review: No Changes in Pt Med Stat, Meds/Allgs Chart Reviewed, Consent Obtained/Reviewed and Anes Risks/Benef Reviewed Patient Risk: Intermediate Procedure Risk: Low Anesthetic Plan Anesthetic Plan: TIVA Disposition: Standard PACU
[2025-04-17 08:16] VITALS: BMI 30.4
[2025-04-17 08:21] VITALS: BP 131/89; PULSE 64; RESP 16; TEMP 36.4; O2SAT 94
[2025-04-17] MEDS: Lactated Ringers 1,000 ML 100 ML IVCONT (08:28)
--- NOTE | 2025-04-17 10:54 | P.BOP_ITS ---
Brief Operative Note Date of Service: 04/17/25 Pre-op diagnosis: Screening Post-op diagnosis: other (Internal hemorrhoids, Diverticulosis) Procedure: Colonoscopy to the cecum Surgeon: Jose Tejada MD Anesthesia: MAC Was an Regulatory And Compliance Technician used for this Procedure?: No Estimated blood loss (mL): 0 Pathology: none sent Condition: stable Disposition: PACU
[2025-04-17 10:56] VITALS: BP 103/76; PULSE 78; RESP 17; TEMP 36.3; O2SAT 94
[2025-04-17 11:11] VITALS: BP 116/62; PULSE 76; RESP 16; O2SAT 95
[2025-04-17 11:24] VITALS: BP 109/69; PULSE 74; RESP 16; TEMP 36.3; O2SAT 95
--- NOTE | 2025-04-17 12:02 | OP_ITS ---
DATE OF SERVICE: 04/17/2025 SURGEON: Jose Tejada MD INDICATIONS: The patient presents for evaluation of colorectal cancer screening. Full consent has been obtained from him for this, including risks of bleeding and perforation. PREOPERATIVE DIAGNOSIS: Colorectal cancer screening. POSTOPERATIVE DIAGNOSIS: PROCEDURE PERFORMED: Colonoscopy to the cecum. ESTIMATED BLOOD LOSS: COMPLICATIONS: ANESTHESIA: Medication used, monitored anesthesia care. ASSISTANTS: SPECIMENS: POSTOPERATIVE DIAGNOSES: Colorectal cancer screening, mild diverticulosis, and internal hemorrhoids. DESCRIPTION OF PROCEDURE: The patient was placed in the left lateral decubitus position. The digital rectal exam revealed no abnormalities. There was no sign of any perianal disease. The Olympus video pediatric colonoscope was entered into the rectum and advanced easily to the cecum. Once in the cecum, I did identify normal-appearing cecal pouch with appendiceal orifice, and a normal-appearing ileocecal valve. The entire cecum and ileocecal valve appeared normal. The scope was slowly withdrawn assessing all mucosal surfaces carefully. Preparation was excellent. I did not visualize any sign of polyps, colitis, nor angiodysplasia. There was a mild amount of sigmoid diverticulosis. In the rectum, scope was retroflexed visualizing internal hemorrhoids, but no other pathology. The rectal mucosa appeared normal. The scope was straightened and withdrawn from the patient. He tolerated the procedure well and was returned to the recovery area in stable condition. IMPRESSION: 1. Small internal hemorrhoids. 2. Mild diverticulosis. PLAN: Given today's negative colonoscopy and negative family history, I would recommend a followup colonoscopy in 10 years for further screening. He will otherwise see me on a p.r.n. basis. Jose Tejada MD RMW/MODL / [id number] MTDD
== END 2025-04-17 11:53 | disposition home or self-care (01) ==
PROVIDERS: PCP Internal Medicine; Visit Provider Internal Medicine
PROC: 0DJD8ZZ Inspection of Lower Intestinal Tract, Via Natural or Artificial Opening Endoscopic (ICD-10-PCS; CPT 45378; principal; 2025-04-17 09:30)
DX: Z12.11 Encounter for screening for malignant neoplasm of colon (principal); K57.30 Diverticulosis of large intestine without perforation or abscess without bleeding; K64.8 Other hemorrhoids; E78.5 Hyperlipidemia, unspecified; F32.A Depression, unspecified; M54.50 Low back pain, unspecified; Z79.899 Other long term (current) drug therapy; Z98.890 Other specified postprocedural states
CPT/HCPCS: 45378; J2003; J2704

== ENCOUNTER 2025-06-07 09:13 | Outpatient (AMB) | payer OTHER, SELFPAY ==
--- OUTSIDE RECORDS SUMMARY | 2025-04-17 05:30 | XMS_ITS ---
Author Organization [facility] Address [address] [place] [address] Care Team Providers Care Career Development Counselor Name Role Phone Caitlin Kathleen Primary Care Provider Unavailab Jose Barry [phone] REASON FOR VISIT screening Encounters Encounter Location Date Provider Diagnosis [facility] [address] [place], [place] [id number] 04/17/2025 Jose Tejada Colon cancer scree nafisa Z12.11 ; Diverticulosis of large intestine without perforation or abscess without bleeding K57.30 and Other hemorrhoids K64.8 Assessments Encounter Date Diagnosis (ICD Code) Assessment Notes Treatment Notes Treatment Clinical Notes Section Notes 04/17/2025 Colon cancer screening (ICD-10 - Z12.11) 04/17/2025 Diverticulosis of large intestine without perforation or abscess without bleeding (ICD-10 - K57.30) 04/17/2025 Other hemorrhoids (ICD-10 - K64.8) Plan Of Treatment No Information Progress Notes * BRYN OGLESBY EDOB: [birth year] (49 yo M)Acc No.[id number]:04/17/2025 COLON WITH MAC Patient: Geneva DHALIWALBRYN Provider: Elroy Tejada MD :1975 A ge:49 Y S ex:Male Date:04/17/2025 Address:[address] [place] [address] Pcp:Caitlin Kathleen Subjective: * Chief Complaints: * 1 . Screening. * Medical History: Objective: * Vitals: Assessment: * Assessment: 1. C olon cancer screening - Z12.11 (Primary) 2 . D iverticulosis of large intestine without perforation or abscess without bleeding - K57.30 3 . O ther hemorrhoids - K64.8 Plan: * Treatment: * Procedure Codes: 4 5378 DIAGNOSTIC COLONOSCOPY * * The named appointment provid er may or may not be the originator of this progress note, and it is not deemed complete until electronically signed by the appointment provider. Sign off status: Pending * Provider: Elroy Tejada MD Date: 0 04/17/2025 Generated for Carol calhoun/Gissell/Douglasitting on: 0 06/07/2025 09:32 AM EDT
--- NOTE | 2025-06-07 09:15 | MHC.OFFVIS ---
Intake Visit Reasons: 2 month Allergies No Known Allergies Allergy (Verified 06/07/25 09:21) Medication List - Last Reconciled 06/07/25 by Aishwarya Chance CNP cwailln-qddylbgxoymuf-rapcijxi 250-250-65 mg (Excedrin Migraine) 1 tab PO Q4-6H PRN atorvastatin 20 mg PO DAILY quetiapine 1 tab PO BEDTIME sulindac 200 mg PO BID PRN HPI Comments Details: 49-year-old man with depression and hyperlipidemia, who fell off a tree about 15 years ago requiring surgery for fractured elbow and for lumbar spine stabilization with hardware, with headaches for many years which increased in frequency to about 4 days/week around 01/2025. He was using Excedrin Migraine between 2-4/day around that time. No triggers identified, although he was under some stress. There were no associated symptoms of nausea, vomiting, photophobia, or sonophobia. No history of head trauma. Headaches were ?less,? now happening about 2x/week. If headaches were severe, he had some sensitivity to light and sound, but none recently. He was using Excedrin Migraine as needed with good relief, about 2x/week. He tried amitriptyline for a few days, but did not notice any difference and stopped the medication. Stress was okay. Sleep was okay. His sister also gets some headaches. [facility] Medical History (Updated 06/07/25 @ 09:41 by Aishwarya Chance CNP) Insomnia Tension headache Hyperlipidemia Low back pain Hemorrhoids that prolapse with straining and require manual replacement back inside anal canal Anxiety and depression Surgical History (Updated 04/17/25 @ 08:13 by Jennifer Melendez RN) History of bunionectomy History of carpal tunnel release of both wrists History of removal of retained hardware History of right elbow replacement History of hemorrhoidectomy (~2007) History of laminectomy (~2013) Social History Alcohol intake: never Patient Tobacco Use Status: Former Tobacco user Current occupational status: disabled Current occupation: right handed Review of Systems Const Denies chills, Denies daytime sleepiness, Reports difficulty sleeping, Denies fatigue, Denies fever(s), Denies frequent falls, Reports headache(s), Denies increased appetite, Denies poor appetite, Denies snoring, Denies weakness, Denies weight gain and Denies weight loss Eyes Denies loss of vision ENT Denies vertigo, Denies dizziness, Reports headache(s) and Reports neck pain Card Denies chest pain at rest, Denies chest pain with activity, Denies syncope, Denies leg edema, Denies palpitations, Denies dyspnea and Denies dyspnea on exertion Resp Denies cough, Denies dyspnea, Denies dyspnea on exertion and Denies snoring GI Denies abdominal pain, Denies constipation, Denies heartburn, Denies diarrhea and Denies nausea Denies urinary frequency, Denies urinary incontinence and Denies urinary urgency Musc Denies abnormal gait, Reports back pain, Denies myalgias, Denies arthralgias, Reports neck pain, Denies numbness and Denies tingling Neuro Denies abnormal gait, Denies vertigo, Denies dizziness, Denies syncope, Denies frequent falls, Reports headache(s), Denies lack of coordination, Denies loss of vision, Denies memory loss, Denies numbness, Denies Other visual disturbances, Denies restless legs, Denies seizure-like activity, Denies tingling, Denies paresthesias, Denies tremor(s) and Denies weakness Psych Denies anxiety, Reports depression, Denies auditory hallucinations, Denies memory loss and Denies visual hallucinations Endo Denies fatigue and Denies palpitations Physical Exam Const Other: General Appearance:? normal, in no acute distress. Heart:? S1, S2 normal, no murmurs. Lungs:? clear anteriorly and posteriorly. Musculoskeletal:? normal. Extremities:? no edema. Psych:? alert, oriented, cognitive function intact, cooperative with exam. Neuro Other: Abnormal Neurological Findings:?walking with cane. Mental Status: alert and oriented X 3. Normal attention, orientation, memory, and affect. Cranial Nerves: Pupils are equal, round, and reactive to light. External ocular muscles are intact. Visual mascorro are full, no ptosis. Face is symmetrical, no facial weakness or droop. Facial sensations are normal. Tongue protrudes in midline. Palate elevates symmetrically. Shoulder shrugging is normal Motor Examination: Normal muscle tone, bulk and strength. No atrophy or fasciculations. No drift of the extended upper extremities. DTR 2+. Plantars are flexor. Sensory Exam: Normal light touch, temperature, pinprick, vibration, and joint-position sensations. Rhomberg sign is absent. Coordination: No ataxia. No titubation. Vqluqk-dq-pnxq, wcvf-ydkt-cspt test, and rapid alternating movements were normal. Gait Exam: walking with cane. Cerebellar Signs: Ziibrt-hv-fkxa and maos-ud-qkna is normal. No dysdiadochokinesia. Extrapyramidal System: No tremor, rigidity with normal facial expressions. No bradykinesia. No bradyphrenia. Normal arm swing and posture. No propulsion or retropulsion. Speech: Normal. No dysphasia or dysarthria. Results Reviewed Results Reviewed: Patient:?Colt Sandoval D.O.B:?1975 Sex:?Male Phone:?[phone] [facility] MRN:?[id number] Exam Date:?04/27/2025 [facility] [place] [address] Phone:?[phone] Fax:?[phone] Referring Physician Information: Oleg Ribeiro M.D. [address] [place] [address] [place] [address] Phone:?[phone] Fax:?[phone] PROCEDURE: CT BRAIN W/ CONTRAST INDICATION: Tension headache, worsening headache with change in pattern, evaluate for a mass. TECHNIQUE: CT of the brain was performed with intravenous contrast. Omnipaque 350, 100 mL was administered intravenously. Automated mA/kV exposure control was utilized and patient examination was performed in strict accordance with principles of ALARA. RADIATION AMOUNT: 967.7 mGy-cm. COMPARISON: None Available. FINDINGS: CT examination of the brain demonstrating normal graf-white matter differentiation. The ventricles and midline structures are of normal appearance. No extra-axial abnormality identified. No abnormal enhancement. No findings of hemorrhage. No findings of acute infarction. No findings of fracture. The paranasal sinuses are clear. The mastoid air cells are clear. No acute orbital abnormality identified. IMPRESSION: No findings of an acute intracranial process or abnormal enhancement. Tommy Young MD Signed by Tommy Young MD Assessment & Plan Assessment & Plan (1) Tension headache: Code(s): G44.209 - Tension-type headache, unspecified, not intractable Category: Medical Plan: CT results reviewed, no acute findings. He stopped amitriptyline after a few days as he did not feel medication helped. Headache frequency decreased. He was using Excedrin Migraine as needed for headaches with good relief. May continue Excedrin Migraine as needed. He was advised to not use this medication (or other OTC analgesics) more than 2-3x/week as this could cause more headaches (medication overuse headaches). Follow up as needed. (2) Migraine without aura: Code(s): G43.009 - Migraine without aura, not intractable, without status migrainosus Category: Medical Qualifiers: Status migrainosus presence: without status migrainosus Intractability: not intractable Qualified Code(s): G43.009 - Migraine without aura, not intractable, without status migrainosus Plan: Common triggers for migraines reviewed. Plan Meds tried: amitriptyline, topiramate Coding Level of Care Code Est Pt Level 4 (52806) Diagnoses Tension headache G44.209 Migraine without aura and without status migrainosus, not intractable G43.009 Status migrainosus presence: without status migrainosus Intractability: not intractable
--- OUTSIDE RECORDS SUMMARY | 2025-06-07 09:32 | XMS_ITS | Encounter Summary ---
Author Organization [facility] Address [address] [place] [address] Care Team Providers Care Heavy Truck Driver Name Role Phone Unavailable Primary Care Provider Unavailabl e Encounter Details Date Type Department Care Team (Late st Contact Info) Description 05/23/2022 Dental Interim Note [facility] [address] [place] [id number] GillespieJeimy rodgers [address] [place], [place] [id number] Social History Tobacco Use Types Packs/Day Years [...]
--- OUTSIDE RECORDS SUMMARY | 2025-06-07 09:32 | XMS_ITS | Clinical Summary ---
Author Organization [facility] Address [address] [place] [address] Phone Care Team Providers Care Farmworker [employer] Name Role Phone Caitlin Kathleen MD Primary Care Provider [phone] Social History Tobacco Use Types Packs/Day Years [...] of 3 - 19+ 3-dose series) 1993 HIV Screening 10/04/2022 Hepatitis C Screening 10/04/2022 Social Influencers of Health Screening 10/04/2022 COVID-19 Vaccine ( - season) 2024 11/14/2021, 05/23/2021 Pneumococcal Vaccine: 50+ Years (1 of 1 - PCV) 2024 Depression Screening 11/02/2024 Influenza Vaccine (#1) 2025 , 08/25/2023, 08/15/2022, Additional history exists Cholesterol Screening (Lipid Panel) 05/23/2030 05/23/2025, 11/21/2024 Colorectal Cancer Screening: Colonoscopy 04/17/2035 04/17/2025 Zoster Vaccines Completed 03/08/2025, 11/29/2024 HIB Vaccines Aged Out No longer eligi [...] Procedure Name Priority Date/Time Associated Diagnosis Comments COMPREHENSIVE METABOLIC PANEL Routine 05/23/2025 7:35 AM EDT Mixed hyperlipidemia Major depressive disorder, single episode in full remission ([facility] V24) Routine general medical examination at a health care facility Body mass index 32.0-32.9, adult LIPID PANEL WITH REFLEX TO DIRECT LDL Routine 05/23/2025 7:35 AM EDT Mixed hyperlipidemia Major depressive disorder, single episode in full remission ([facility] V24) Routine general medical examination at a health care facility Body mass index 32.0-32.9, adult from Last 3 Months Results * (ABNORMAL) Lipid panel with reflex to direct LDL (05/23/2025 7:35 AM EDT) Cholesterol 182 0 - 200 mg/dL LAB CHEMISTRY METHOD 05/23/2025 10:44 AM [facility] Triglycerides 205(H) 0 - 150 mg/dL LAB CHEMISTRY METHOD 05/23/2025 10:44 AM [facility] HDL 38(L) >=40 mg/dL LAB CHEMISTRY METHOD 05/23/2025 10:44 AM [facility] LDL Calculated 103(H) 0 - 100 mg/dL LAB CHEMISTRY METHOD 05/23/2025 10:44 AM [facility] VLDL Cholesterol Kieran 41 mg/dL LAB CHEMISTRY METHOD 05/23/2025 10:44 AM [facility] Non HDL Chol. (LDL+VLDL) 144 <145 mg/dL LAB CHEMISTRY METHOD 05/23/2025 10:44 AM [facility] Chol/HDL Ratio 4.8(H) 0.0 - 4.4 LAB CHEMISTRY METHOD 05/23/2025 10:44 AM [facility] Blood Venous blood specimen / Unknown Venipuncture / Unknown 05/23/2025 7:35 AM EDT 05/23/2025 7:35 AM EDT us Caitlin Kathleen MD LAB BLOOD ORDERABLES Final Re sult [facility] [address] [place] [address], * Comprehensive metabolic panel (05/23/2025 7:35 AM EDT) Sodium 140 133 - 145 mmol/L LAB CHEMISTRY METHOD 05/23/2025 10:44 AM [facility] Potassium 4.5 3.5 - 5.5 mmol/L LAB CHEMISTRY METHOD 05/23/2025 10:44 AM [facility] Chloride 107 96 - 110 mmol/L LAB CHEMISTRY METHOD 05/23/2025 10:44 AM [facility] CO2 28 21 - 32 mmol/L LAB CHEMISTRY METHOD 05/23/2025 10:44 AM [facility] Anion Gap 5 3 - 11 LAB CHEMISTRY METHOD 05/23/2025 10:44 AM [facility] Glucose 84 70 - 100 mg/dL LAB CHEMISTRY METHOD 05/23/2025 10:44 AM [facility] BUN 17 5 - 25 mg/dL LAB CHEMISTRY METHOD 05/23/2025 10:44 AM [facility] Creatinine 1.13 0.70 - 1.30 mg/dL LAB CHEMISTRY METHOD 05/23/2025 10:44 AM [facility] eGFR 79 >=60 mL/min/1. 73m2 LAB CHEMISTRY METHOD 05/23/2025 10:44 AM [facility] Comment:Calculation based on the Chronic Kidney Disease Epidemiology Collaboration (CKD-EPI) equation refit without adjustment for race. BUN/Creatinine Ratio 15.0 LAB CHEMISTRY METHOD 05/23/2025 10:44 AM [facility] Calcium 9.6 8.5 - 10.5 mg/dL LAB CHEMISTRY METHOD 05/23/2025 10:44 AM [facility] AST (SGOT) 24 10 - 42 unit/L LAB CHEMISTRY METHOD 05/23/2025 10:44 AM [facility] ALT (SGPT) 47 10 - 60 unit/L LAB CHEMISTRY METHOD 05/23/2025 10:44 AM [facility] Alkaline Phosphatase 77 42 - 121 unit/L LAB CHEMISTRY METHOD 05/23/2025 10:44 AM [facility] Total Protein 7.3 6.0 - 8.0 g/dL LAB CHEMISTRY METHOD 05/23/2025 10:44 AM [facility] Albumin 4.3 3.2 - 5.0 g/dL LAB CHEMISTRY METHOD 05/23/2025 10:44 AM [facility] Total Bilirubin 0.7 0.0 - 1.4 mg/dL LAB CHEMISTRY METHOD 05/23/2025 10:44 AM [facility] Blood Venous blood specimen / Unknown Venipuncture / Unknown 05/23/2025 7:35 AM EDT 05/23/2025 7:35 AM EDT us Caitlin Kathleen MD LAB BLOOD ORDERABLES Final Re sult [facility] [address] [place] [address], [place] [phone] from Last 3 Months Insurance * Guarantor: Bryn Lan Account Type Relation to Patient Date of Phone Billing Address Personal/Family Self 1975 [address] [place] [address] [facility] Care Teams Farmworker [employer] Relationship Specialty Start Date End Date Caitlin Kathleen MD [address] [place] [address] [address] [place] [id number] PCP - General Internal Medicine 11/21/24
== END 2025-06-07 09:33 | disposition home or self-care (01) ==
LOC: HO.HSM 09:13
PROVIDERS: PCP Internal Medicine; Referring Provider Internal Medicine; Visit Provider Registered Nurse
DX: G44.209 Tension-type headache, unspecified, not intractable (principal); G43.009 Migraine without aura, not intractable, without status migrainosus
CPT/HCPCS: 99214

== ENCOUNTER → 2025-06-07 09:13 | Outpatient (BNVA) | payer OTHER, SELFPAY | PROVIDERS: PCP Internal Medicine; Referring Provider Internal Medicine; Visit Provider Registered Nurse | DX: G44.209 Tension-type headache, unspecified, not intractable (principal); G43.009 Migraine without aura, not intractable, without status migrainosus; Z79.899 Other long term (current) drug therapy | CPT/HCPCS: 99212 ==